=== PATIENT | female | born 1965 | race Caucasian/White ===

== ENCOUNTER 2023-10-24 17:55 | Emergency (ER) | payer BC, SELFPAY ==
[2023-10-24 18:10] VITALS: BP 168/110; PULSE 89; RESP 20; TEMP 36.6; O2SAT 95; BMI 40.3
--- NOTE | 2023-10-24 18:44 | ECG_ITS ---
[facility] Test Date: 2023-10-24 Pat Name: ANDREW ZIEGLER Department: Room: - Gender: Female Product Technician: : 1965 Requested By: YSABEL DOBBS Order Number: [id number] Reading MD: HORACIO COREAS Measurements Intervals [place] Rate: 68 P: 32 MT: 204 QRS: -89 QRSD: 96 T: 27 QT: 408 QTc: 425 Interpretive Statements 1100 Sinus rhythm 2440 Incomplete right bundle branch block Remote inferolateral PA 8102 Low QRS voltage in chest leads 9150 abnormal ECG No previous ECG available for comparison Electronically Signed On 10-25-2023 6:43:15 EDT by HORACIO COREAS
--- NOTE | 2023-10-24 18:45 | ED.GENADUL1 ---
HPI - General Adult General Chief complaint: Recheck/Abnormal Lab/Rx Stated complaint: Hypertension Time Seen by Provider: 10/24/23 18:27 Source: patient Mode of arrival: walk-in Limitations: no limitations History of Present Illness HPI narrative: Patient is a 57-year-old female who presents to the emergency department for the evaluation of high blood pressure readings over the last week. Her at bedside states that her blood pressure read 190/110 at home. She has an appointment tomorrow with her doctor. She does take losartan/hydrochlorothiazide. She has not had any skipped dosages or new dosages of this medication. She states that her PCP instructed her to go to the hospital to have an outpatient EKG, But the staff in the office then told her to go to the emergency department. She had an EKG performed at [facility] but got inpatient because she was not taken to a room so she left, her family encouraged her to come here for evaluation. Blood pressure is 168/110 at time of initial evaluation. Patient has no focal medical complaints or associated symptoms with the high blood pressure. Related Data Home Medications ?Medication ?Instructions ?Recorded ?Confirmed duloxetine 60 mg capsule,delayed 60 mg PO DAILY 10/24/23 10/24/23 release losartan 100 1 tab PO DAILY 10/24/23 10/24/23 mg-hydrochlorothiazide 12.5 mg tablet rosuvastatin 5 mg tablet 5 mg PO DAILY 10/24/23 10/24/23 Allergies Allergy/AdvReac Type Severity Reaction Status Date / Time No Known Drug Allergies Allergy Verified 10/24/23 18:10 Review of Systems ROS Constitutional Denies: fever or chills Ears, nose, mouth, and throat Denies: throat pain or nasal congestion Cardiovascular Denies: chest pain Respiratory Denies: shortness of breath Gastrointestinal Denies: nausea or vomiting Musculoskeletal Denies: back pain Integumentary/Breast Denies: rash Neurological Denies: headache Endocrine Denies: excessive urination Hematologic/Lymphatic Denies: easy bruising or easy bleeding Exam Narrative Exam Narrative: Gen.: Awake, alert, in no distress Head: Normocephalic, atraumatic ENT: Moist mucous membranes Respiratory: No respiratory distress, lungs clear bilaterally Cardio: Regular rate and rhythm Extremities: Moves extremities equally, no Pedal edema Psych: Normal mood and affect Neuro: No focal neuro deficit Skin: Warm, dry, intact Constitutional Vital Signs, click to edit/add: Last Vital Signs Temp 97.9 F 10/24/23 18:10 Pulse 89 10/24/23 18:10 Resp 20 10/24/23 18:10 BP 140/96 H 10/24/23 19:13 Pulse Ox 95 10/24/23 18:10 O2 Del Method Room Air 10/24/23 18:10 Course Vital Signs Vital signs: Vital Signs Temperature 97.9 F 10/24/23 18:10 Pulse Rate 89 10/24/23 18:10 Respiratory Rate 20 10/24/23 18:10 Blood Pressure 168/110 H 10/24/23 18:10 Pulse Oximetry 95 10/24/23 18:10 Oxygen Delivery Method Room Air 10/24/23 18:10 Temperature 97.9 F 10/24/23 18:10 Pulse Rate 89 10/24/23 18:10 Respiratory Rate 20 10/24/23 18:10 Blood Pressure 140/96 H 10/24/23 19:13 Pulse Oximetry 95 10/24/23 18:10 Oxygen Delivery Method Room Air 10/24/23 18:10 Medical Decision Making MDM Narrative Medical decision making narrative: Patient's blood pressure in the emergency department was 148/96 on reevaluation. She has no medical complaints in the ER. She has no EKG changes, normal labs. She is discharged to follow-up with her doctor tomorrow and return to the ER if symptoms change or worsen. Medical Records Medical records reviewed: Yes I reviewed the patient's medical records Lab Data Lab results reviewed: Yes I reviewed the patient's lab results Labs: Lab Results 10/24/23 Range/Units 19:11 WBC 8.1 (4.0-11.0) 10^3/uL RBC 4.30 (4.20-5.40) 10^6/uL Hgb 12.6 (12.0-16.0) g/dL Hct 38.8 (36.0-48.0) % MCV 90.2 (81.0-99.0) fL MCH 29.3 (26.7-34.0) pg MCHC 32.5 (29.9-35.2) g/dL RDW 13.3 (11.0-15.0) % Plt Count 243 (150-450) 10^3/uL MPV 9.7 (9.5-13.5) fL Neut % (Auto) 57.0 (43.0-75.0) % Lymph % (Auto) 32.6 (20.5-60.0) % [place] % (Auto) 6.6 (1.7-12.0) % Eos % (Auto) 2.7 (0.9-7.0) % Baso % (Auto) 1.0 (0.2-2.0) % Neut # (Auto) 4.6 (1.4-6.5) 10^3/uL Lymph # (Auto) 2.6 (1.2-3.8) 10^3/uL [place]vert # (Auto) 0.5 (0.3-0.8) 10^3/uL Eos # (Auto) 0.2 (0.0-0.7) 10^3/uL Baso # (Auto) 0.1 (0.0-0.1) 10^3/uL Abs Immat Gran (auto) 0.01 (0.00-0.03) 10^3/uL Imm/Tot Granulo (auto) 0.1 (0.0-0.5) % Sodium 138 (136-145) mmol/L Potassium 3.5 (3.5-5.1) mmol/L Chloride 102 (98-107) mmol/L Carbon Dioxide 29.4 (21.0-32.0) mmol/L Anion Gap 10.1 BUN 13.0 (7.0-18.0) mg/dL Creatinine 0.66 (0.55-1.02) mg/dL Est GFR ( Amer) >60 (>=60) Est GFR (Non-Af Amer) >60 (>=60) BUN/Creatinine Ratio 19.7 Glucose 98 (74-106) mg/dL Calcium 8.7 (8.5-10.1) mg/dL Total Bilirubin 0.8 (0.2-1.0) mg/dL ALT 15 (14-59) U/L Alkaline Phosphatase 69 (46-116) U/L Troponin I High Sens 7.4 (4.0-51.3) pg/mL NT-Pro-B Natriuret Pep 222.0 (<=900.0) pg/mL Total Protein 7.5 (6.4-8.2) g/dL Albumin 3.5 (3.4-5.0) g/dL Globulin 4.0 g/dL Albumin/Globulin Ratio 0.9 ECG Data Attestation: I personally reviewed and interpreted this ECG as follows: (Normal sinus rhythm at a rate of 68, incomplete right bundle branch block, no acute ST elevation or ectopy. EKG reviewed by attending physician) Discharge Plan Discharge Stand Alone Forms: Portal Instructions Chief Complaint: Recheck/Abnormal Lab/Rx Clinical Impression: Hypertension Patient Disposition: Home, Self-Care Time of Disposition Decision: 19:48 Condition: Good Prescriptions / Home Meds: No Action duloxetine 60 mg capsule,delayed release(DR/EC) 60 mg PO DAILY losartan-hydrochlorothiazide 100-12.5 mg tablet 1 tab PO DAILY rosuvastatin 5 mg tablet 5 mg PO DAILY Print Language: Guinean Instructions: Hypertension (ED) Referrals: YSABEL DOBBS [Primary Care Provider] - 1 week
[2023-10-24 19:13] VITALS: BP 140/96
[2023-10-24 19:17] LABS: Basophils Absolute Auto 0.1 10^3/uL (0.0-0.1); Eosinophils Absolute Auto 0.2 10^3/uL (0.0-0.7); Eosinophils Percent Auto 2.7 % (0.9-7.0); Hematocrit 38.8 % (36.0-48.0); Hemoglobin 12.6 g/dL (12.0-16.0); Immature Granulocytes Abs Auto 0.01 10^3/uL (0.00-0.03); Immature Granulocytes Pct Auto 0.1 % (0.0-0.5); Lymphocytes Absolute Auto 2.6 10^3/uL (1.2-3.8); Lymphocytes Percent Auto 32.6 % (20.5-60.0); Mean Corpuscular HGB Conc 32.5 g/dL (29.9-35.2); Mean Corpuscular Hemoglobin 29.3 pg (26.7-34.0); Mean Corpuscular Volume 90.2 fL (81.0-99.0); Mean Platelet Volume 9.7 fL (9.5-13.5); Monocytes Absolute Auto 0.5 10^3/uL (0.3-0.8); Monocytes Percent Auto 6.6 % (1.7-12.0); Neutrophils Absolute Auto 4.6 10^3/uL (1.4-6.5); Platelet Count 243 10^3/uL (150-450); Red Cell Distribution Width 13.3 % (11.0-15.0); White Blood Count 8.1 10^3/uL (4.0-11.0)
[2023-10-24 19:38] LABS: Alanine Aminotransferase 15 U/L (14-59); Albumin Globulin Ratio 0.9; Albumin Level 3.5 g/dL (3.4-5.0); Alkaline Phosphatase 69 U/L (46-116); Anion Gap 10.1; BUN Creatinine Ratio 19.7; Bilirubin Total 0.8 mg/dL (0.2-1.0); Calcium 8.7 mg/dL (8.5-10.1); Carbon Dioxide 29.4 mmol/L (21.0-32.0); Chloride 102 mmol/L (98-107); Estimated GFR (African America >60 (>=60); Estimated GFR (Non-African Ame >60 (>=60); Glucose 98 mg/dL (74-106); Potassium 3.5 mmol/L (3.5-5.1); Sodium 138 mmol/L (136-145); Total Protein 7.5 g/dL (6.4-8.2)
[2023-10-24 19:40] LABS: Troponin I High Sensitivity 7.4 pg/mL (4.0-51.3)
[2023-10-24 19:45] LABS: Aspartate Amino Transferase 14 U/L (15-37)
== END 2023-10-24 19:58 | disposition home or self-care (01) ==
PROVIDERS: Physician Assistant; Emergency Provider Emergency Medicine; PCP Family Medicine
DX: I10 Essential (primary) hypertension (principal); Z79.899 Other long term (current) drug therapy
CPT/HCPCS: 36415; 80053; 83880; 84484; 85025; 93005; 99284